=== PATIENT | female | born 1975 | race Caucasian/White ===

== ENCOUNTER → 2016-10-02 | Outpatient (CLI) | payer BC ==
[2004-08-16 08:24] VITALS: PULSE 86; TEMP 98.5
== END ==
LOC: MC.RAD 13:20
DX: Z12.31 Encounter for screening mammogram for malignant neoplasm of breast (principal)

== ENCOUNTER → 2018-10-26 | Outpatient (CLI) | payer BC ==
[2004-08-16 08:24] VITALS: PULSE 86; TEMP 98.5
== END ==
LOC: MC.RAD 10:52
DX: Z12.31 Encounter for screening mammogram for malignant neoplasm of breast (principal)

== ENCOUNTER 2018-12-16 07:48 | Day surgery (SDC) | payer BC ==
[~2018-12-16] VITALS: Ht 160 cm; Wt 67.0 kg
[2018-12-16] MEDS ORDERED: EFFEXOR XR75 MG/CAP PO (08:03)
[2018-12-16] MEDS ORDERED: EFFEXOR-XR150 MG PO (08:03)
[2018-12-16] MEDS ORDERED: PRIL40 PO (08:04)
[2018-12-16 08:40] VITALS: BP 104/74; PULSE 90; TEMP 98.7
[2018-12-16 09:40] VITALS: BP 98/69; PULSE 85; TEMP 97.8
[2018-12-16 09:55] VITALS: BP 100/70; PULSE 86
[2018-12-16 10:10] VITALS: BP 102/74; PULSE 86
--- NOTE | 2018-12-16 10:10 | NUR ---
TOLERATED FOOD AND DRINK. PHYSICIAN AT BEDSIDE. CALL LIGHT IN REACH. IV DC'D. WILL CONTINUE TO MONITOR.
[2018-12-16 10:25] VITALS: BP 104/72; PULSE 82; TEMP 98
--- NOTE | 2018-12-16 10:32 | NUR ---
PATIENT RETURNS FROM OR TO BAY 3 VIA CART. VS STARTED. AT BEDSIDE. CALL LIGHT IN REACH. GIVEN CHOCOLATE PUDDING AND DIET COKE. WILL CONTINUE TO MONITOR.
--- NOTE | 2018-12-16 10:49 | NUR ---
DISCHARGE INSTRUCTIONS GIVEN TO PATIENT AND SPOUSE. VERBALIZED UNDERSTANDING. DECLINED WHEELCHAIR. ESCORTED AMBULATORY TO PERSONAL CAR.
== END 2018-12-16 10:51 | disposition home or self-care (01) ==
LOC: SDCO 07:48
DX: D12.2 Benign neoplasm of ascending colon (principal); R19.7 Diarrhea, unspecified; K59.00 Constipation, unspecified; K21.9 Gastro-esophageal reflux disease without esophagitis; F32.9 Major depressive disorder, single episode, unspecified; F41.9 Anxiety disorder, unspecified; Z85.43 Personal history of malignant neoplasm of ovary; Z87.891 Personal history of nicotine dependence; Z90.722 Acquired absence of ovaries, bilateral; Z88.1 Allergy status to other antibiotic agents
CPT/HCPCS: J2704; J7120

== ENCOUNTER → 2020-02-23 | Outpatient (CLI) | payer BC ==
[2004-08-16 08:24] VITALS: TEMP 98.5
[~2020-02-23] MED LIST: EFFEXOR XR75 MG/CAP PO; EFFEXOR-XR150 MG PO; PRIL40 PO
== END ==
LOC: MC.RAD 13:36
DX: Z12.31 Encounter for screening mammogram for malignant neoplasm of breast (principal)

== ENCOUNTER 2020-06-12 21:37 | Inpatient (IN) | payer BC ==
[~2020-06-12] VITALS: Ht 160 cm; Wt 62.6 kg
[2020-06-12] VITALS (45 sets, daily range): BP systolic 111; BP diastolic 69; PULSE 98; TEMP 98.5; O2SAT 96–99
--- NOTE | 2020-06-12 22:56 | NUR ---
RECEIVED REPORT FROM ELBERT TREJO OF [facility].
[2020-06-13] VITALS (187 sets, daily range): BP systolic 90–102; BP diastolic 55–68; PULSE 79–95; TEMP 98–99.2; O2SAT 96–100
[2020-06-13 00:02] LABS: ALBUMIN 3.5 gm/dL (3.5-5.0); BILIRUBIN,TOTAL 0.4 mg/dL (0.0-1.0); CALCIUM 7.8 mg/dL (8.4-10.2); CREATININE, serum 0.5 (0.52-1.25); MAGNESIUM 1.8 mg/dL (1.6-2.3); PHOSPHOROUS 2.2 mg/dL (2.5-4.5); POTASSIUM 3.2 mmol/L (3.4-5.0); TOTAL PROTEIN 5.8 gm/dL (6.4-8.2)
[2020-06-13 02:38] LABS: CALCIUM 7.3 mg/dL (8.4-10.2); CREATININE, serum 0.51 (0.52-1.25); POTASSIUM 3.4 mmol/L (3.4-5.0)
[2020-06-13 04:20] LABS: BASO # 0.1 (0.0-0.2); EOS # 0.4 (0.0-0.7); EOS % 5.3 % (0-4.0); GRAN # 3.3 (1.4-6.5); GRAN % 46.2 % (42.2-75.2); HEMOGLOBIN 11.6 g/dl (12.5-16.0); LYMPH # 2.7 (1.2-3.4); LYMPH % 36.9 % (20.0-51.0); MEAN CELL VOLUME 91 fl (80.0-100.0); MEAN CORPUSCULAR HEMOGLOBIN 32 pg (27.0-31.0); MEAN CORPUSCULAR HGB CONC 35 g/dl (33.0-37.0); MONO # 0.7 (0.1-0.6); MONO % 10.2 % (1.7-9.3); PLATELET COUNT 240 K/mm3 (130-400); RED BLOOD COUNT 3.68 M/mm3 (4.10-5.30); REDCELL DISTRIBUTION WIDTH-CV 12.4 % (11.5-14.5)
[2020-06-13 04:21] LABS: HEMATOCRIT 33.3 % (37.0-47.0)
[2020-06-13 04:32] LABS: CALCIUM 7.1 mg/dL (8.4-10.2); CREATININE, serum 0.48 (0.52-1.25); POTASSIUM 3.5 mmol/L (3.4-5.0)
--- NOTE | 2020-06-13 05:40 | NUR ---
PT ARRIVED IN UNIT VIA EMS AROUND 2300 LAST NIGHT. PT INDEPENDENTLY TRANSFER FROM STRETCHER TO BED. PT ALERT AND ORIENTED X 4, ON ROOM AIR AND DENIES ANY PAIN/SOB/DISCOMFORT. INITIAL VSS. PT HAS D5 1/2 NS WITH 20K INFUSING AT HER RAC. TATIANA CONTRERAS NOTIFIED OF ARRIVAL.
[2020-06-13 05:59] LABS: CALCIUM 7.2 mg/dL (8.4-10.2); CREATININE, serum 0.45 (0.52-1.25); POTASSIUM 3.4 mmol/L (3.4-5.0)
--- NOTE | 2020-06-13 07:30 | NUR ---
Report received from Jackie BOSWELL. Insulin running at 2.5units/hr.
[2020-06-13 07:58] LABS: CALCIUM 7.2 mg/dL (8.4-10.2); CREATININE, serum 0.4 (0.52-1.25); POTASSIUM 3.3 mmol/L (3.4-5.0)
--- NOTE | 2020-06-13 08:24 | NUR ---
notified of K3.3 Orders received to start K replacement protocol.
--- NOTE | 2020-06-13 09:26 | NUR ---
SW met with the patient to discuss discharge plan. The patient lives in [place] with her 23-year-old daughter, Deisy (ph#[phone]). She reports independence with ADLs and does not have any DME. The patient's PCP is Dr. Tyson Peña and she receives her medications from [facility]. She reports no difficulties obtaining her meds. The patient does not have a DPOA-HC, but she was interested in obtaining a form. SW provided. The patient states that she is not . She has two children: Deisy and a [id number] son. Her mother Valentina Slater (ph#[phone]), also lives in [place]. The patient plans to return home with her daughter upon discharge. SW to follow as needed.
--- NOTE | 2020-06-13 09:40 | NUR ---
PT EDUCATED ON HOW TO CHECK BLOOD SUGAR AND INJECTIONS OF INSULIN. PT GIVEN LEVIMER. INSULIN DRIP TO STOP IN 30-45 MINS. PT UPDATED. DIET ORDERED.
--- NOTE | 2020-06-13 10:06 | NUR ---
INSULIN DRIP DC'D. LEVEMIR PREVIOUSLY GIVEN. PT ABOUT TO EAT BREAKFAST.
--- NOTE | 2020-06-13 13:33 | NUR ---
1215: PT CHECKED HER OWN BLOOD SUGAR WITH INSTRUCTIONS. PT ADMINISTERED HER OWN INSULIN WITH INSTRUCTIONS. 1327- ATTEMPTED TO CALL REPORT TO MILLICENT BOSWELL. STATES HE WILL CALL BACK SOON.
--- NOTE | 2020-06-13 14:00 | NUR ---
First visit. Doctor Of Nursing Practice was able to stand outside door and pray with patient.
--- NOTE | 2020-06-13 14:00 | NUR ---
PT TRANSFERED UP TO ROOM 359. MILLICENT BOSWELL MET IN ROOM. ALL QUESTIONS ANSWERED.
--- NOTE | 2020-06-13 20:00 | NUR ---
Assessment complete. Patient has no complaints of pain. She does state her hand, where fluids are infusing, feels "tight". IV site flushed and assessed with no issues. For patient comfort, fluids moved to be infused into the right AC IV. Insulin education provided. Patient requests to shower and is provided materials to do such. Will continue to monitor.
[2020-06-14 00:39] VITALS: BP 85/56; PULSE 82; TEMP 98.3
[2020-06-14 01:04] VITALS: BP 96/59
[2020-06-14 04:30] VITALS: BP 96/59; PULSE 71; TEMP 97.9
[2020-06-14 06:53] LABS: BASO # 0.1 (0.0-0.2); EOS # 0.4 (0.0-0.7); EOS % 5.2 % (0-4.0); GRAN # 2.8 (1.4-6.5); GRAN % 42.2 % (42.2-75.2); HEMOGLOBIN 12.8 g/dl (12.5-16.0); LYMPH # 2.8 (1.2-3.4); LYMPH % 41.5 % (20.0-51.0); MEAN CELL VOLUME 91 fl (80.0-100.0); MEAN CORPUSCULAR HEMOGLOBIN 32 pg (27.0-31.0); MEAN CORPUSCULAR HGB CONC 35 g/dl (33.0-37.0); MEAN PLATELET VOLUME 9.4 fl (7.4-10.4); MONO # 0.7 (0.1-0.6); PLATELET COUNT 241 K/mm3 (130-400); REDCELL DISTRIBUTION WIDTH-CV 12.7 % (11.5-14.5)
[2020-06-14 06:55] LABS: HEMATOCRIT 36.5 % (37.0-47.0)
[2020-06-14 07:08] LABS: CALCIUM 8.4 mg/dL (8.4-10.2); CREATININE, serum 0.48 (0.52-1.25); MAGNESIUM 1.7 mg/dL (1.6-2.3); POTASSIUM 3.3 mmol/L (3.4-5.0)
[2020-06-14 07:14] VITALS: BP 92/52; PULSE 76; TEMP 98.1
[2020-06-14] MEDS ORDERED: LANCETS MC (09:45)
[2020-06-14] MEDS ORDERED: BD ALCOHOL1 SWA TP (09:45)
[2020-06-14] MEDS ORDERED: FREESTYLE PREC1 EAC5 MC (09:45)
[2020-06-14] MEDS ORDERED: LEVEMIR FLEX100 U/ML SQ (09:47)
[2020-06-14] MEDS ORDERED: INSULIN PEN NE1 EAC1 MC (09:48)
[2020-06-14] MEDS ORDERED: GLUCOSE TEST ST1 DEV MC (09:49)
[2020-06-14] MEDS ORDERED: NOVOLOG FLEX100 U/ML SQ (09:50)
--- NOTE | 2020-06-14 09:50 | NUR ---
Grey Inspector attended clinical rounds with the team and patient to discharge home today. Hospitalist advised patient to check and record her sugars four times daily until her follow up appointment with her primary care physician. Patient verbalized understanding and advised she met with a dietitian yesterday. No needs identified at this time.
--- NOTE | 2020-06-14 09:50 | NUR ---
Pt awake and alert this morning, no C/O pain at this time, shift assessments complete, left Pt call light in reach, bed in lowest position.
[2020-06-14 13:31] LABS: CALCIUM 8.6 mg/dL (8.4-10.2); CREATININE, serum 0.49 (0.52-1.25); POTASSIUM 3.7 mmol/L (3.4-5.0)
--- NOTE | 2020-06-14 13:32 | NUR ---
First visit from the behavioral instructor. No needs right now.
== END 2020-06-14 14:30 | disposition home or self-care (01) | DRG 639 ==
LOC: ICU 21:37 → MEDICAL 23:15
PROVIDERS: Physician Assistant; ADMIT Internal Medicine
DX: E11.10 Type 2 diabetes mellitus with ketoacidosis without coma (principal); Z85.43 Personal history of malignant neoplasm of ovary; K21.9 Gastro-esophageal reflux disease without esophagitis; F41.9 Anxiety disorder, unspecified; E83.39 Other disorders of phosphorus metabolism; Z20.828 Contact with and (suspected) exposure to other viral communicable diseases; E87.6 Hypokalemia; Z90.721 Acquired absence of ovaries, unilateral; Z87.891 Personal history of nicotine dependence
CPT/HCPCS: 99223-AI; 99232-AI; 99239; J1650; J1815; J3480; J7030

== ENCOUNTER → 2020-10-23 | Outpatient (CLI) | payer BC ==
[~2020-10-23] MED LIST changes: +BD ALCOHOL1 SWA TP; +FREESTYLE PREC1 EAC5 MC; +GLUCOSE TEST ST1 DEV MC; +INSULIN PEN NE1 EAC1 MC; +LANCETS MC; +LEVEMIR FLEX100 U/ML SQ; +NOVOLOG FLEX100 U/ML SQ
== END ==
LOC: COL.RAD 12:30
DX: R55 Syncope and collapse (principal)
CPT/HCPCS: A9585

== ENCOUNTER → 2020-11-21 | Outpatient (CLI) | payer BC | LOC: COL.CARD 09:26 | DX: R55 Syncope and collapse (principal) ==

== ENCOUNTER → 2021-01-08 | Outpatient (CLI) | payer BC | LOC: DIA.ED 07:39 | DX: E10.9 Type 1 diabetes mellitus without complications (principal); E78.5 Hyperlipidemia, unspecified; E03.9 Hypothyroidism, unspecified | CPT/HCPCS: G0108 ==

== ENCOUNTER → 2021-03-03 | Outpatient (CLI) | payer BC | LOC: MC.RAD 13:15 | DX: Z12.31 Encounter for screening mammogram for malignant neoplasm of breast (principal) ==

== ENCOUNTER → 2022-03-13 | Outpatient (CLI) | payer BC | LOC: MC.RAD 13:30 | DX: Z12.31 Encounter for screening mammogram for malignant neoplasm of breast (principal) ==

== ENCOUNTER 2024-01-07 05:26 | Day surgery (SDC) | payer BC ==
[~2024-01-07] VITALS: Ht 160 cm; Wt 66.5 kg
[~2024-01-07 05:26] MED LIST changes: +LR 1,000 ML IV SCH; +Ondansetron 4 MG/2 ML VIAL IV PRN
[2024-01-07] MEDS ORDERED: BUSPIRONE HCL7.5 MG PO (05:46)
[2024-01-07] MEDS ORDERED: DOXYCYCLINE HY100 MG PO (05:47)
[2024-01-07] MEDS ORDERED: GLUMETZA500 MG PO (05:48)
[2024-01-07] MEDS ORDERED: LANTUS100 U/ML SQ ×2 (05:49→05:50)
[2024-01-07] MEDS ORDERED: LEVOXYL0.025 MG PO (05:50)
[2024-01-07] MEDS ORDERED: NOVOLOG FLEX100 U/ML SQ (05:53)
[2024-01-07] MEDS ORDERED: BANOPHEN25 M1 PO (05:55)
[2024-01-07] MEDS ORDERED: Lidocaine PF 2% (20 MG/ML) 5 ML VIAL ONE (06:16)
[2024-01-07] MEDS ORDERED: Glycopyrrolate 0.2 MG/ML 1 ML VIAL ONE (06:16)
[2024-01-07 06:30] VITALS: BP 106/68; PULSE 86; TEMP 98
--- NOTE | 2024-01-07 06:37 | NUR ---
0536 Patient ambulatory to bay 1 with steady gait, breathing even and unlabored. Pt is alert and oriented. Consents reviewed and signed by the patient. IV established. LR infusion via gravity at KVO. Call light in reach. Warm blanket provided.
[2024-01-07 07:35] VITALS: BP 87/59; PULSE 71; TEMP 97.8
--- NOTE | 2024-01-07 07:35 | NUR ---
The patient arrived back to [facility] from the endoscopy suite at this time. The patient ambulated from the cart the recliner in her room with the stand by assistance of two nurses and appeared to tolerate the activity well. Post procedure vital signs were started at this time. The patient agrees to try some sugar free pudding and sprite zero at this time. Denies any further needs.
[2024-01-07 07:50] VITALS: BP 100/68; PULSE 65
--- NOTE | 2024-01-07 07:50 | NUR ---
Dr. Suárez has been in to speak with the patient regarding the findings of the procedure. The patient finished her food and drink and appeared to tolerate them both well. The patient's boyfriend, Mahin, was brought back to be at her bedside.
[2024-01-07 08:03] VITALS: BP 102/65; PULSE 65
--- NOTE | 2024-01-07 08:03 | NUR ---
Discharge instructions were reviewed with the patient and her boyfriend at this time. They both verbalized understanding and have no questions for the nurse at this time. The patient's IV to her right hand was removed and a pressure dressing was applied to the site. The nurse instructed the patient to get dressed and notify the staff when she is ready to be escorted out.
--- NOTE | 2024-01-07 08:13 | NUR ---
The patient was escorted out via wheelchair to a private vehicle by staff at this time. The patient's belongings and discharge instructions were sent with her. The patient's boyfriend, Mahin, is present to drive her home.
== END 2024-01-07 08:13 | disposition home or self-care (01) ==
LOC: SDCO 05:26
DX: Z12.11 Encounter for screening for malignant neoplasm of colon (principal); D12.2 Benign neoplasm of ascending colon; D12.5 Benign neoplasm of sigmoid colon; E10.9 Type 1 diabetes mellitus without complications; Z87.891 Personal history of nicotine dependence; Z85.43 Personal history of malignant neoplasm of ovary; Z79.84 Long term (current) use of oral hypoglycemic drugs
CPT/HCPCS: J2704; J7120